=== PATIENT | female | born 1935 | race Caucasian/White ===

== ENCOUNTER 2018-03-04 18:07 | Emergency (ER) | payer OTHER, MEDICARE ==
[2018-03-04] MEDS ORDERED: SODIUM BICARBONATE 8.4% INJ 50 MEQ/50 ML SYR IV ONE ×2 (18:08)
[2018-03-04] MEDS ORDERED: EPINEPHrine HCL (1:1000) 30 MG/30 ML VIAL IV ONE (18:08)
[2018-03-04] MEDS ORDERED: DOPamine 800 MG/500 ML INJ 500 ML IV ONE (18:08)
[2018-03-04] MEDS ORDERED: EPINEPHrine HCL (1:10,000) 1 MG/10 ML SYRINGE IV ONE ×2 (18:08)
[2018-03-04] MEDS ORDERED: DEXTROSE 50% IN WATER 50 ML SYRINGE IV ONE (18:08)
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
[2018-03-04 18:49] VITALS: O2SAT 99
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
[2018-03-04 19:06] VITALS: O2SAT 96
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
== END 2018-03-04 21:51 | disposition expired ==
LOC: NEPI 18:07 → EDBD 18:07 → NEPI 21:51
DX: I46.9 Cardiac arrest, cause unspecified (principal); V89.2XXA Person injured in unspecified motor-vehicle accident, traffic, initial encounter
CPT/HCPCS: 31500; 32551; 36430; 70450; 71045; 72170; 73551; 73590; 80048; 86850; 86900; 86901; 86920; 92950; 96374; 99285; 99291; J0171; J1265; P9016; G0390